=== PATIENT | female | born 1980 | race Caucasian/White ===

== ENCOUNTER → 2018-03-25 | Outpatient (CLI) | payer BC ==
--- NOTE | 2018-03-25 09:04 | KCIC ---
History: Slightly enlarged left breast for 3 years. Technique: Bilateral digital mammographic routine views were obtained with CAD - computer aided detection. Comparison: None. Findings: Breast Tissue Density D :The breast tissue is extremely dense, lowering the sensitivity of the examination. There are no suspicious masses, microcalcifications or areas of architectural distortion. Impression: Dense breast tissue. No suspicious abnormality noted. BI-RADS Category 1: Negative. Normal interval followup with a bilateral mammogram at age 41. These results were given to the patient in person. Your mammogram demonstrates that you have dense breast tissue, which could hide abnormalities, and if you have other risk factors for breast cancer that have been identified, you might benefit from supplemental screening tests that may be suggested by your ordering physician. Dense breast tissue, in and of itself, is a relatively common condition. This information is not provided to cause undue concern, but rather to raise your awareness and to promote discussion with your physician regarding the presence of other risk factors, in addition to dense breast tissue. A report of your mammography results will be sent to you and your physician. You should contact your physician if you have any questions or concerns regarding this report. A mammogram does not have 100% sensitivity and therefore a negative imaging study should not delay further work up of a suspicious abnormality. The patient will receive a letter with the results in the mail. Patient information is entered into the reminder system with a target due date for the next screening mammogram. The patient will receive a reminder. "Our facility is accredited by the [employer] Mammography Program." Electronically signed by: Sergey De La O III, MD (03/25/2018 9:00 AM) [id number]
== END | disposition home or self-care (01) ==
LOC: KCIC MAMMO 07:46
DX: N62 Hypertrophy of breast (principal)
CPT/HCPCS: 77066